=== PATIENT | female | born 1995 | race Caucasian/White ===

== ENCOUNTER 2018-08-10 11:32 | Emergency (ER) | payer OTHER ==
[2018-08-10 12:19] VITALS: BMI 29.2
--- NOTE | 2018-08-10 14:50 | US ---
Date of service: 08/10/2018 PROCEDURE: Limited obstetrical ultrasound examination with biophysical profile. HISTORY: vaginal fluid loss COMPARISON: Not available TECHNIQUE: Transabdominal FINDINGS: Single live intrauterine gestation in cephalic presentation. Normal anterior placenta noted. Not evaluated for previa. Cervix closed and measures 3.5 cm. NICO 17.6 cm. heart rate 150 beats per minute. Biophysical profile examination yields a score of 8 out of 8. IMPRESSION: Limited examination. Single live intrauterine gestation. Heart rate 150. Biophysical profile score 8 out of 8.
[2018-08-15 21:40] VITALS: BP 124/75; PULSE 99
== END 2018-08-10 14:35 | disposition home or self-care (01) ==
LOC: H.EROB2 11:32 → H.L&D 12:46 → H.EROB2 14:09 → H.ERHOLD 14:10 → UNDOADMIN 14:10 → H.ERHOLD 14:35 → UNDODISIN 14:36
DX: O34.63 Maternal care for abnormality of vagina, third trimester (principal); N89.8 Other specified noninflammatory disorders of vagina; Z3A.34 34 weeks gestation of pregnancy